=== PATIENT | female | born 1995 | race Caucasian/White ===

== ENCOUNTER 2019-10-23 10:43 | Emergency (ER) | payer OTHER, SELFPAY ==
[2019-10-23 11:05] VITALS: BP 126/79; PULSE 87; RESP 12; TEMP 37.4; O2SAT 100
--- NOTE | 2019-10-23 11:39 | ED.GENADULT ---
HPI - General Adult General Chief complaint: Dizziness Stated complaint: Dizziness Time Seen by Provider: 10/23/19 11:39 Source: patient Mode of arrival: ambulatory Limitations: no limitations History of Present Illness HPI narrative: 23-year-old female patient presents to the [facility] with complaints of dizziness that started suddenly on . Denies any injury to the head. Denies any vision changes. Patient states that when she is lying down her dizziness is better however when she goes to sit up her dizziness is worse. Patient states that her symptoms are better when lying on her left side but is worse when turning over to her right. Patient denies any fevers, body aches or chills. Denies any sore throat, ear pain, runny nose. Denies any cough. Denies any abdominal pain, nausea, vomiting or diarrhea. Patient states she has tried taking Tylenol for some headaches which has relieved her headache pain as well as some antihistamines with decongestant thinking it might be sinuses but it has not really improved her symptoms. Related Data Allergies Allergy/AdvReac Type Severity Reaction Status Date / Time Penicillins Allergy Unknown Rash Verified 10/23/19 11:13 Review of Systems Review of Systems: Narrative: CONSTITUTIONAL: Denies fever, chills, or sweats. EYES: Denies visual changes, redness, or discharge. ENT: Denies rhinorrhea, congestion, sore throat, or otalgia. CARDIOVASCULAR: Denies chest pain, palpitations, or edema. RESPIRATORY: Denies cough or dyspnea. GASTROINTESTINAL: Denies abdominal pain, nausea, vomiting, or diarrhea. GENITOURINARY: Denies dysuria or hematuria. SKIN: Denies rash or itching. MUSCULOSKELETAL: Denies back pain, joint pain, or myalgia. NEUROLOGIC: Denies headache, numbness, or weakness. Positive dizziness x3 days PSYCHIATRIC: Denies anxiety or depression. PMFSH Social History Social History Gender identity (if verbalized by the patient): Female Comments At the time of my signature I agree with nursing past medical history, surgical, social, and family history. There is no relevant family history pertinent to the presenting complaint. Exam Narrative: Exam Narrative: GENERAL: Well-appearing, well-nourished, and in no acute distress. HEAD: Normocephalic, atraumatic. EYES: PERRLA and EOMI. ENT: Nares clear, no rhinorrhea or epistaxis. Mucous membranes moist. Posterior pharynx no erythema, tonsillectomy, exudates or lesions present. Bilateral TMs are clear no erythema or foreign bodies in the canal. NECK: Supple. No lymphadenopathy CHEST: Clear to auscultation. No respiratory distress. HEART: Regular rate and rhythm. No murmur heard. Normal peripheral pulses. ABDOMEN: Soft, nontender, nondistended, normal active bowel sounds. EXTREMITIES: Normal range of motion. No edema. SKIN: Warm, dry, no rash. NEURO: Alert and oriented x4, GCS 15. Cranial nerves II through XII grossly intact. No focal neurological deficits. Normal muscle strength and tone. Normal deep tendon reflexes. Negative Babinski, normal finger to nose coordination he had normal heel to jarvis glide. Speech is clear. Normal gait. Negative Romberg and no pronator drift. Patient has worse symptoms when lying to the right side, improved symptoms when lying on the left side. Symptoms to improve when laying down however do increase when coming to a sitting position. Course Vital Signs Vital signs: Vital Signs Temperature 37.4 C 10/23/19 11:05 Pulse Rate 87 10/23/19 11:05 Respiratory Rate 12 10/23/19 11:05 Blood Pressure 126/79 10/23/19 11:05 Pulse Oximetry 100 10/23/19 11:05 Temperature 37.4 C 10/23/19 11:05 Pulse Rate 87 10/23/19 11:05 Respiratory Rate 12 10/23/19 11:05 Blood Pressure 126/79 10/23/19 11:05 Pulse Oximetry 100 10/23/19 11:05 Vital signs reviewed. Medical Decision Making Differential Diagnosis Differential Diagnosis: Differen
== END 2019-10-23 11:56 | disposition home or self-care (01) ==
PROVIDERS: Emergency Provider Nurse Practitioner Family; PCP Physician Assistant
DX: H81.11 Benign paroxysmal vertigo, right ear (principal); J45.909 Unspecified asthma, uncomplicated
CPT/HCPCS: 99203; G0463